=== PATIENT | male | born 1980 | race Caucasian/White ===

== ENCOUNTER 2019-05-08 01:56 | Emergency (ER) ==
[2019-05-08 02:13] VITALS: TEMP 98.7; BMI 37.3
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
[2019-05-08] MEDS: MOTRIN PO STA (04:14)
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
--- NOTE | 2019-05-08 04:26 | DI ---
EXAM: Right forearm, two views, 05/08/2019 HISTORY: Pain COMPARISON: None. FINDINGS / IMPRESSION: The visualized osseous structures appear intact. Anatomic alignment appears within normal limits. There is no evidence of fracture or dislocation. No acute osseous abnormality.
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
[2019-05-08 04:50] VITALS: BP 155/99
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
== END 2019-05-08 05:25 | disposition home or self-care (01) ==
LOC: ED 01:56
DX: S29.9XXA Unspecified injury of thorax, initial encounter (principal); S50.811A Abrasion of right forearm, initial encounter; S80.11XA Contusion of right lower leg, initial encounter; S40.021A Contusion of right upper arm, initial encounter; I10 Essential (primary) hypertension; V69.9XXA Occupant (driver) (passenger) of heavy transport vehicle injured in unspecified traffic accident, initial encounter; F17.210 Nicotine dependence, cigarettes, uncomplicated
CPT/HCPCS: 80306; 81001; 99284